=== PATIENT | male | born 1970 | race Caucasian/White ===

== ENCOUNTER 2022-11-04 08:57 | Emergency (ER) | payer OTHER, BC ==
[~2022-11-04] VITALS: Ht 182 cm; Wt 100.0 kg
--- NOTE | 2022-11-04 09:27 | Diagnostic Imaging Report ---
INDICATION: Right wrist pain. FINDINGS: Three views of the right wrist show no fracture, dislocation, or other acute abnormalities. IMPRESSION: Negative right wrist. Dictated by: Dictated on workstation # [id number]
--- NOTE | 2022-11-04 09:27 | Diagnostic Imaging Report ---
INDICATION: Left wrist injury. 3 views of the left wrist show no fracture, dislocation or other acute abnormalities. IMPRESSION: Negative left wrist. Dictated by: Dictated on workstation # [id number]
[2022-11-04 09:29] VITALS: BP 135/76
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
== END 2022-11-04 10:00 | disposition home or self-care (01) ==
LOC: ER FS 08:59
DX: S63.501A Unspecified sprain of right wrist, initial encounter (principal); S63.502A Unspecified sprain of left wrist, initial encounter; V28.49XA Other motorcycle driver injured in noncollision transport accident in traffic accident, initial encounter; Y93.55 Activity, bike riding; Y92.410 Unspecified street and highway as the place of occurrence of the external cause
CPT/HCPCS: 73110; 99283